=== PATIENT | female | born 2005 ===

== ENCOUNTER 2025-08-16 08:34 | Emergency (ER) | payer OTHER, SELFPAY ==
--- NOTE | ~2025-08-16 | CT_ITS ---
CTA CHEST CLINICAL HISTORY: elevated D-Dimer, low risk for PE . COMPARISON: Chest x-ray today TECHNIQUE: Helical CTA performed from thoracic inlet to upper abdomen IV contrast information not listed in PACS Coronal, sagittal reformats. Multiplanar MIPS CT images acquired with automatic exposure control for dose reduction DLP: 310 mGy-cm FINDINGS: Pulmonary arteries: No PE. Thoracic Aorta: No dissection or aneurysm. Heart/pericardium: Unremarkable. RV/LV ratio: Normal. Lungs/Pleura: Clear. Tracheobronchial tree: Patent. Nodes: No enlarged nodes. Bones: No acute bony abnormality. Soft tissues: Unremarkable. Visualized upper abdomen: Hepatomegaly, with steatosis. IMPRESSION: 1. No PE or other acute cardiopulmonary findings. Reviewed, dictated and finalized at location R.
--- NOTE | ~2025-08-16 | XR_ITS ---
EXAMINATION: XR chest 2V, 08/16/2025 9:08 CDT HISTORY: SOB; RT SIDED CP COMPARISON: No comparisons available. Technique: 2 views obtained. Findings: The lungs are clear, no effusion. No pneumothorax. Heart is normal size. Mediastinal and hilar contours are within normal limits. Bony thorax no acute abnormality. Impression: No acute cardiopulmonary abnormality. Reviewed, dictated and finalized at location P. Impression: No acute cardiopulmonary abnormality.
[2025-08-16 08:40] VITALS: BP 152/111; PULSE 85; RESP 20; TEMP 36.6; O2SAT 100
--- NOTE | 2025-08-16 08:40 | ECG_ITS ---
Test Date: 2025-08-16 08:43:17 Measurements Intervals [place] Rate: 84 P: 43 MN: 158 QRS: 68 QRSD: 90 T: 17 QT: 358 QTc: 424 Interpretive Statements SINUS RHYTHM NONSPECIFIC T-WAVE ABNORMALITY- ANTERIOR LEADS BASELINE ARTIFACT- I, III, AVR, AVL, AVF BORDERLINE ECG No previous ECG available for comparison Electronically Signed On 08-16-2025 09:28:21 CDT by Lokesh Vasques D.O.
[2025-08-16 08:45] VITALS: O2SAT 100
--- NOTE | 2025-08-16 08:50 | ED_ITS ---
HPI - SOB/Dyspnea General Chief Complaint: Shortness of Breath/Dyspnea Stated Complaint: SOB Time Seen by Provider: 08/16/25 08:41 History of Present Illness HPI Narrative: 20-year-old female history of anxiety and depression presents to the ER complaining of inspiratory chest pain and shortness of breath that began yesterday. Denies history of PE/DVT. States shortness of breath and chest pain is not aggravated with activity. Denies history of asthma. Related Data Allergies Allergy/AdvReac Type Severity Reaction Status Date / Time No Known Allergies Allergy Verified 08/16/25 08:44 Review of Systems 2 Review of Systems: All systems reviewed & are unremarkable except as noted in HPI and below Exam 2 Const: General: healthy appearing and alert Orientation/consciousness: p atient oriented x3 HENMT: Head: normal to inspection Eyes: Conjunctivae: conjunctivae normal Pupils: Equal, round and reactive pupils present EOM: EOMs intact bilaterally Resp: Effort & Inspection: normal respiratory effort Auscultation: clear to auscultation bilaterally Cardio: Rate: regular rate Rhythm: regular rhythm Skin: General skin exam: normal color Neuro: General: patient oriented x3, moves all extremities and CN's II-XI intact bilaterally Extrem: General: normal to inspection Psych: Mental Status: mental status grossly normal Affect: normal affect Attitude: cooperative Course Vital Signs Vital signs: Vital Signs Temperature 36.6 C 08/16/25 08:40 Pulse Rate 85 08/16/25 08:40 Respiratory Rate 20 08/16/25 08:40 Blood Pressure 152/111 H 08/16/25 08:40 Pulse Oximetry 100 08/16/25 08:40 Oxygen Delivery Room Air 08/16/25 08:40 Temperature 36.6 C 08/16/25 08:40 Pulse Rate 85 08/16/25 09:01 Respiratory Rate 14 08/16/25 09:01 Blood Pressure 144/98 H 08/16/25 09:01 Pulse Oximetry 100 08/16/25 09:01 Oxygen Delivery Room Air 08/16/25 08:45 MDM - SOB/Dyspnea MDM Narrative Medical decision making narrative: In summary: 20-year-old female presents the ER complaining of shortness of breath, chest tightness and anxiety. Differential diagnosis includes anxiety attack, pleurisy, costochondritis, angina, pneumonia, PE. Imaging and lab work reassuring. Patient was given Toradol and Valium. On re-examination, patient's symptoms had resolved. Cause a presentation is likely mix of pleurisy and anxiety. Patient was discharged home in stable condition. Lab Data 08/16/25 08:48 08/16/25 08:48 Labs: Lab Results 08/16/25 08/16/25 Range/Units 08:48 09:59 WBC 12.5 H (4.5-10.0) K/mm3 RBC 5.27 (4.2-5.4) M/mm3 Hgb 14.8 (12.0-15.0) g/dL Hct 42.9 (37.0-47.0) % MCV 81.4 (80-100) fl MCH 28.1 (26-34) pg MCHC 34.5 (32-36) g/dl RDW 11.6 (11.5-14.5) % Plt Count 367 (150-375) k/mm3 MPV 9.3 (7.4-10.4) fl Immature Gran % (Auto) 0.5 (0-0.5) % Neut % (Auto) 76.0 H (45.5-73.1) % Lymph % (Auto) 17.9 L (18.3-44.2) % [place] % (Auto) 4.2 (2.6-8.5) % Eos % (Auto) 1.1 (0-4.4) % Baso % (Auto) 0.3 (0.2-1.2) % Lymph # (Auto) 2.23 (0.9-3.2) K/mm3 [place] # (Auto) 0.5 (0.1-0.6) K/mm3 Eos # (Auto) 0.1 (0-0.3) K/mm3 Baso # (Auto) 0.0 (0.0-0.1) K/mm3 Abs Immat Gran (auto) 0.06 H (0.00-0.031) K/mm3 Absolute Neuts (auto) 9.5 H (1.3-6.7) K/mm3 Absolute Nucleated RBC 0.000 (0.0-0.012) K/mm3 Nucleated RBC % 0.0 (0.0-0.2) % D-Dimer 0.49 H (<0.48) ug/mL Sodium 137 (137-145) mmol/L Potassium 3.6 (3.4-5.0) mmol/L Chloride 103 (98-107) mmol/L Carbon Dioxide 20 L (22-30) mmol/L Anion Gap 14 H (4-12) mmol/L BUN 15 (7-17) mg/dL Creatinine 0.72 (0.7-1.0) mg/dL Estim Creat Clear Calc 107 ml/min Estimated GFR > 60 (59 - ) Glucose 101 (65-110) mg/dL Calcium 10.3 H (8.4-10.2) mg/dL Total Bilirubin 0.5 (0.2-1.3) mg/dL AST 30 (14-36) U/L ALT 28 (6-35) U/L Alkaline Phosphatase 66 (38-126) U/L Troponin I < 0.012 (0.000-0.034) ng/mL Total Protein 8.8 H (6.3-8.2) g/dL Albumin 5.0 (3.5-5.1) g/dL POC Urine HCG, Qual Negative (Negative) Discharge Plan Discharge Clinical Impression: Pleurisy, Anxiety Patient Disposition: Home Condition: Stable Instructions: Antibiotic Form, Pleurisy (ED), Anxiety (ED) Patient Language: [place] Island[place] Prescriptions: New hydroxyzine HCl 25 mg tablet 25 mg PO TID Qty: 30 0RF naproxen 500 mg tablet 500 mg PO BID Qty: 20 0RF Follow-up/Referrals: Ruth,Emily Dent MD [Primary Care Provider] Time of Disposition: 10:45
[2025-08-16 08:58] LABS: Hematocrit 42.9 % (37.0-47.0); Hemoglobin 14.8 g/dL (12.0-15.0); Immature Granulocyte Percent A 0.5 % (0-0.5); Lymphocytes Absolute Auto 2.23 K/mm3 (0.9-3.2); Mean Corpuscular HGB Conc 34.5 g/dl (32-36); Mean Corpuscular Hemoglobin 28.1 pg (26-34); Mean Corpuscular Volume 81.4 fl (80-100); Nucleated Red Blood Cells Absolute Auto 0.000 K/mm3 (0.0-0.012); Nucleated Red Blood Cells Perc 0.0 % (0.0-0.2); Platelet Count Result 367 k/mm3 (150-375); Red Blood Count 5.27 M/mm3 (4.2-5.4); White Blood Count 12.5 K/mm3 (4.5-10.0)
--- OUTSIDE RECORDS SUMMARY | 2025-08-16 08:59 | XMS_ITS | Clinical Summary ---
Author Organization [facility] Address [address] [place] [address] Care Team Providers Care Physical Medicine Teacher Name Role Phone Emily Miranda MD Primary Care Provider Source Comments [facility],non-owned Affiliates and Associated Physician Practices is amultiple site organization consisting of ambulatory clinics and hospital sitesin [place], [place], [place] and [place]. This disclosure is being madepursuant to the Care Everywhere program and may not contain all information available regarding this patient. Last updated 18.[facility] Allergies No known active allergies Medications * Be aware that medications may not be up to date on this document. Alwaysverify current medications with the patient. 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 Gender Identity Not on file Sexual Orientation Not on file Last Filed Vital Signs Vital Sign Reading Time Taken Comments Blood Pressure 106/68 06/27/2019 2:37 PM CDT Pulse 89 06/27/2019 2:37 PM CDT Temperature 37.4 C (99.4 F) 06/27/2019 2:37 PM CDT Respiratory Rate 21 06/27/2019 2:37 PM CDT Oxygen Saturation 98% 06/27/2019 2:37 PM CDT Inhaled Oxygen Concentration - - Weight 53.1 kg (117 lb) 06/27/2019 2:37 PM CDT Height 165.1 cm (5' 5) 06/27/2019 2:37 PM CDT Body Mass Index 19.47 06/27/2019 2:37 PM CDT Plan of Treatment Health Maintenance Due Date Last Done Comments HIV SCREENING 01/15/2020 HPV VACCINE (1 - 3-dose series) 01/15/2020 CHLAMYDIA/GONORRHEA SCREENING 2021 MENINGOCOCCAL (Group B) VACC INE SHARED DECISION-MAKING (1 of 2 - Standard) 2021 HEPATITIS C SCREENING 01/10/2023 DTAP/TDAP/TD VACCINES (1 - Tdap) 01/15/2024 HEPATITIS B VACCINE (1 of 3 - 19+ 3-dose series) 01/15/2024 DEPRESSION SCREENING 11/11/2024 COVID-19 VACCINE (1 - 2023-2 5 season) 2025 INFLUENZA VACCINE (#1) 2025 ZOSTER VACCINE (1 of 2) 2055 HIB VACCINE Aged Out No longer eligi ble based on patient's age to complete this topic MENINGOCOCCAL GROUPS A/C/Y/W VACCINE Aged Out No longer eligible b ased on patient's age to complete this topic PNEUMOCOCCAL VACCINE Aged Out No long er eligible based on patient's age to complete this topic Insurance ANTHEM Care Teams Physical Medicine Teacher Relationship Specialty Start Date End Date Emily Miranda MD [address] [place] [id number] PCP - General Pediatrics 06/27/19
--- OUTSIDE RECORDS SUMMARY | 2025-08-16 08:59 | XMS_ITS | Encounter Summary ---
Author Organization [facility] Healthcare Address [address] [place] [address] Care Team Providers Care Handkerchief Presser Name Role Phone Emily Miranda MD Primary Care Provider [phone] Encounter Details Date Type Department Care Team ([facility] st Contact Info) Description 08/14/2025 Results Follow-Up [facility] Medical [facility] Con[facility]ient Care at [address] [phone] Lillie Mehta NP [address] [place] [address] [address] [place], [place] [id number] Vaginitis panel Vaginal, Urine culture Urine, clean voided, N. gonorrhoeae/C. trachomatis Amplification Vaginal Social History Tobacco Use Types Packs/Day Years Used Date Smoking Tobacco: Never Assessed Comments Unknown Sex and Gender Information Value Date Recorded Sex Assigned at Not on file Legal Sex Female 9:54 AM CDT Gender Identity Not on file Sexual Orientation Not on file documented as of this encounter Plan of Treatment Not on file documented as of this encounter Visit Diagnoses Not on filedocumented in this encounter Care Teams Handkerchief Presser Relationship Specialty Start Date End Date Emily Miranda MD [address] [facility] [address] [place] [address] PCP - General Pediatrics 06/14/23 documented as of this encounter
--- OUTSIDE RECORDS SUMMARY | 2025-08-16 08:59 | XMS_ITS | Clinical Summary ---
Author Organization [facility] Address [address] [place] [address] Care Team Providers Care Cleaning Matron Name Role Phone Emily Miranda MD Primary Care Provider [phone] Allergies No known active allergies Medications Tri-Sprintec, 28, 0.18/0.215/0.25 mg-0.035mg (28) per tablet Take by mouth daily as needed 08/08/2025 Active buPROPion XL (WELLBUTRIN XL) 300 mg 24 hr tablet Take 1 tablet (300 mg total) by mouth daily Active busPIRone (BUSPAR) 15 mg tabletIndicatio ns:Generalized Anxiety Disorder Take 1 tablet (15 mg total) by mouth 2 (two) times a day Active sertraline (ZOLOFT) 50 mg tablet Take 1 tablet (50 mg total) by mouth daily Active hydrOXYzine (ATARAX) 10 mg tablet Take 1 tablet (10 mg total) by mouth daily as needed for itching Active Active Problems No known active problems Encounters Date Type Department Care Team Description 08/14/2025 Results Follow-Up [facility] Medical [facility] Convenient Care at [address] [phone] Lillie Mehta NP Vaginitis panel Vaginal, Urine culture Urine, clean voided, N. gonorrhoeae/C. trachomatis Amplification Vaginal 08/13/2025 7:00 PM CDT Office Visit [facility] at [address] [phone] Lillie Mehta NP Pelvic pain (Primary Dx); Acute midline low back pain without sciatica 08/13/2025 6:56 PM CDT - 08/13/2025 11:59 PM CDT Hospital Encounter [address] [address] Pelvic pain Discharge Disposition: Discharge to home or self care from Last 3 Months Social History Tobacco Use Types Packs/Day Years Used Date Smoking Tobacco: Never Assessed Comments Unknown Sex and Gender Information Value Date Recorded Sex Assigned at Not on file Legal Sex Female 9:54 AM CDT Gender Identity Not on file Sexual Orientation Not on file Last Filed Vital Signs Vital Sign Reading Time Taken Comments Blood Pressure 122/76 08/13/2025 7:02 PM CDT Pulse 84 08/13/2025 7:02 PM CDT Temperature 36.7 C (98 F) 08/13/2025 7:02 PM CDT Respiratory Rate 20 08/13/2025 7:02 PM CDT Oxygen Saturation 98% 08/13/2025 7:02 PM CDT Inhaled Oxygen Concentration - - Weight 76.2 kg (168 lb) 08/13/2025 7:02 PM CDT Height - - Body Mass Index - - Plan of Treatment Health Maintenance Due Date Last Done Comments Depression Screening 2005 Hepatitis C Screening 2005 Meningococcal B Vaccine (2 o f 2 - Trumenba SCDM 2-dose series) 08/21/2022 02/19/2022, 02/13/2021 Regular Well Visit/Exam 18-64 2023 Covid-19 Vaccine (5 - 2024-2 6 season) 2025 09/20/2022, 04/19/2022, 03/21/2021, Additional history exists Influenza Vaccine (#1) 2025 , 08/02/2021, 07/30/2020, Additional history exists DTaP/Tdap/Td Vaccine (7 - Td or Tdap) 06/13/2026 06/13/2016, 02/28/2010, 02/17/2007, Additional history exists Pneumococcal vaccine <65 Completed 006, 04/03/2006, 01/15/2006 Varicella Vaccines Completed 05/22/2006, 04/03/2006 Hepatitis B Screening Completed 08/14/2006 , 05/22/2006, 04/03/2006, Additional history exists HPV Vaccines Completed 01/10/2017, 05/2016, 06/13/2016 Meningococcal Vaccine Completed 02/13/2021, 016 Procedures Procedure Name Priority Date/Time Associated Diagnosis Comments POCT URINALYSIS DIPSTICK Routine 08/13/2025 7:05 PM CDT Pelvic pain N. GONORRHOEAE/C. TRACHOMATIS AMPLIFICATION Routine 08/13/2025 6:56 PM CDT Pelvic pain URINE CULTURE Routine 08/13/2025 6:56 PM CDT Pelvic pain VAGINITIS PANEL Routine 08/13/2025 6:56 PM CDT Pelvic pain from Last 3 Months Results * POCT urinalysis dipstick (08/13/2025 7:05 PM CDT) Color, Urine, POC Yellow Clarity, ur, POC Clear Clear Glucose, ur, POC Negative Negative Bilirubin, ur, POC Negative Negative Ketones, ur, POC Negative Negative Specific [place], POC 1.025 1.003 - 1.030 Blood, ur, POC Negative Negative pH, ur, POC 6.5 5.0 - 8.0 Protein, ur, POC Negative Negative Urobilinogen, urine, POC 0.2 0.2 - 1.0 mg/dL Nitrite, ur, POC Negative Negative Leukocytes, ur, POC Negative Negative Lot Number [id number] Urine 08/13/2025 7:05 PM CDT us Lillie Mehta NP POINT OF CARE TEST ORDERAB LES Final Result * N. gonorrhoeae/C. trachomatis Amplification Vaginal (08/13/2025 6:56 PM CDT) C. trachomatis Not Detected [facility] Comment:Testing performed by : [facility], [address] [place] [address] N. gonorrhoeae Not Detected [facility] Comment: Interpretive Data This assay detects Chlamydia trachomatis and Neisseria gonorrhoeae by nucleic acid amplification testing (NAAT). This assay has been cleared by the [place] Food and Drug administration. The performance characteristics of this test have been verified by the [facility] Molecular Infectious Disease laboratory. The performance characteristics of this test have not been evaluated in individuals less than 14 years of age. Current Interpretive Data was last revised on 2023. Testing performed by: [facility], [address] [place]., [address] Vaginal (None) 08/13/2025 6: 56 PM CDT 08/14/2025 12:09 AM CDT Lillie Mehta NP LAB MICROBIOLOGY - GENERAL ORDERABLES Final Result [facility] [address] Department [place] [address] [facility] * Vaginitis panel Vaginal (08/13/2025 6:56 PM CDT) Pathologist [facility] Bacterial Vaginosis Not Detected Not Detected Comment:A negative result do es not preclude a possible infection. Results should be considered in conjunction with clinical presentation to determine the disease status. Shannan group Not Detected Not Detected [facility] Shannan glabrata/ krusei Not Detected Not Detected [facility] Trichomonas DNA Not Detected Not Detected [facility] Vaginal 08/13/2025 6:56 PM CDT 08/13/2025 9:19 PM CDT Narrative [facility] - 08/13/2025 10:29 PM CDT The [employer]ep[employer] Things[employer] Xpert Xpress MVP test detects DNA targets from anaerobic bacteria associated with bacterial vaginosis, Shannan species associated with vulvovaginal candidiasis, and Trichomonas vaginalis by nucleic acid amplification testing (NAAT). Results should be interpreted in conjunction with other clinical data. This test cannot be used to assess therapeutic success or failure because target nucleic acids may persist following antimicrobial therapy. This test has been cleared by the [place] Food and Drug Administration to aid in the diagnosis of vaginal infections in symptomatic women ages 14 and older. The performance characteristics of this test have been verified by the [facility]. Lillie Mehta NP LAB MICROBIOLOGY - GENERAL ORDERABLES Final Result Performing Organization Address [facility] Co de Phone Number ANDREAS GROSS [phone] Department [place] [address] [place] * Urine culture Urine, clean voided (08/13/2025 6:56 PM CDT) Report Final Report: Less than 100,000 colonies/mL (clinically insignificant growth based on current clinical standards) Comment:Testing performed by : [facility], [address] [place]., [address] Organism (CLINICALLY INSIGNIFICANT GROWTH [facility] Urine, clean voided 08/13/2025 6:56 PM CDT 08/14/2025 12:18 AM CDT Narrative [facility]RE[facility] - 08/15/2025 9:44 AM CDT Testing performed by [facility] Microbiology Laboratory ([phone]) Lillie Mehta NP LAB MICROBIOLOGY - GENERAL ORDERABLES Final Result Performing Organization Address [facility] Co de Phone Number ANDREAS GROSS [phone] Department [place] [address] from Last 3 Months Insurance [employer] [facility] HMO HMO Care Teams Cleaning Matron Relationship Specialty Start Date End Date Emily Miranda MD [address] [address] PCP - General Pediatrics 06/14/23
[2025-08-16 09:01] VITALS: BP 144/98; PULSE 85; RESP 14; O2SAT 100
[2025-08-16 09:16] LABS: Alanine Aminotransferase 28 U/L (6-35); Albumin Level 5.0 g/dL (3.5-5.1); Alkaline Phosphatase 66 U/L (38-126); Anion Gap 14 mmol/L (4-12); Aspartate Amino Transferase 30 U/L (14-36); Bilirubin,Total 0.5 mg/dL (0.2-1.3); Blood Urea Nitrogen 15 mg/dL (7-17); Calcium 10.3 mg/dL (8.4-10.2); Carbon Dioxide 20 mmol/L (22-30); Chloride 103 mmol/L (98-107); Estimated CRCL calculation 107 ml/min; Estimated Glomerular Filt Rate > 60; Glucose 101 mg/dL (65-110); Potassium 3.6 mmol/L (3.4-5.0); Sodium 137 mmol/L (137-145); Total Protein 8.8 g/dL (6.3-8.2)
[2025-08-16] MEDS: KETOROLAC 30 MG/ML VIAL (*BKC) IV PUSH (09:19)
[2025-08-16] MEDS: diazePAM INJ (*CRX) 10 MG/2 ML SYRINGE 5 MG IV PUSH (09:20)
[2025-08-16 09:27] LABS: Troponin I < 0.012 ng/mL (0.000-0.034)
[2025-08-16 10:01] LABS: BEDSIDEPREGUCG Negative (Negative)
--- OUTSIDE RECORDS SUMMARY | 2025-08-16 10:01 | XMS_ITS | Clinical Summary ---
Author Organization [facility] Address [address] [place] [address] Care Team Providers Care Administrative Services Specialist Name Role Phone Emily Miranda MD Primary Care Provider [phone] Allergies No known active allergies Medications Tri-Sprintec, [...] Department Care Team Description 08/14/2025 Results Follow-Up [facility] Medical [facility] Convenient Care at [address] [phone] Lillie Mehta NP Vaginitis panel Vaginal, Urine culture Urine, clean voided, N. gonorrhoeae/C. trachomatis Amplification Vaginal 08/13/2025 7:00 PM CDT Office Visit [facility] Medical [facility] Convenient Care at [address] [phone] Lillie Mehta NP Pelvic pain (Primary Dx); Acute midline low back pain without sciatica 08/13/2025 6:56 PM CDT - 08/13/2025 11:59 PM CDT Hospital Encounter [address] [address] Pelvic pain Discharge Disposition: Discharge to home [...] Negative Ketones, ur, POC Negative Negative Specific [place], POC 1.025 1.003 - 1.030 Blood, ur, POC Negative Negative pH, ur, POC 6.5 5.0 - 8.0 Protein, ur, POC Negative Negative Urobilinogen, urine, POC 0.2 0.2 - 1.0 mg/dL Nitrite, ur, POC Negative Negative Leukocytes, ur, POC Negative Negative Lot Number [id number] Urine 08/13/2025 7:05 PM CDT us Lillie Mehta NP POINT OF CARE TEST ORDERAB LES Final Result * N. gonorrhoeae/C. trachomatis Amplification Vaginal (08/13/2025 6:56 PM CDT) C. trachomatis Not Detected [facility] Comment:Testing performed by : [facility], [address] [place]., [address] N. gonorrhoeae Not Detected [facility] Comment: Interpretive Data This assay detects Chlamydia trachomatis and Neisseria gonorrhoeae by nucleic acid amplification testing (NAAT). This assay has been cleared by the [place] Food and Drug administration. The performance characteristics of this test have been verified by the [facility] Molecular Infectious Disease laboratory. The performance characteristics of this test have not been evaluated in individuals less than 14 years of age. Current Interpretive Data was last revised on 2023. Testing performed by: [facility], [address] [place]., [address] Vaginal (None) 08/13/2025 6: 56 PM CDT 08/14/2025 12:09 AM CDT Lillie Mehta NP LAB MICROBIOLOGY - GENERAL ORDERABLES Final Result [facility] [address] Department [place] [address] [facility] * Vaginitis panel Vaginal (08/13/2025 6:56 PM CDT) Pathologist [facility] Bacterial Vaginosis Not Detected Not Detected Comment:A negative result do es not preclude a possible infection. Results should be considered in conjunction with clinical presentation to determine the disease status. Shannan group Not Detected Not Detected [facility] Shannan glabrata/ krusei Not Detected Not Detected [facility] Trichomonas DNA Not Detected Not Detected [facility] Vaginal 08/13/2025 6:56 PM CDT 08/13/2025 9:19 PM CDT Narrative [facility] - 08/13/2025 10:29 PM CDT The Cepmy[employer] Xpert Xpress MVP test detects DNA targets [...] this test have been verified by the [facility] Laboratory. Lillie Mehta NP LAB MICROBIOLOGY - GENERAL ORDERABLES Final Result Performing Organization Address [facility] Co de Phone Number ANDREAS GROSS [phone] Department [place] [address] [place] * Urine culture Urine, clean voided (08/13/2025 6:56 PM CDT) Report Final Report: Less than 100,000 colonies/mL (clinically insignificant growth based on current clinical standards) Comment:Testing performed by : [facility], [address] [place]., [address] Organism (CLINICALLY INSIGNIFICANT GROWTH [facility] Urine, clean voided 08/13/2025 6:56 PM CDT 08/14/2025 12:18 AM CDT Narrative ANDREAS - 08/15/2025 9:44 AM CDT Testing performed by [facility] Microbiology Laboratory ([phone]) Lillie Mehta NP LAB MICROBIOLOGY - GENERAL ORDERABLES Final Result Performing Organization Address [facility] Co de Phone Number ANDREAS GROSS [phone] Department [place] [address] from Last 3 Months Insurance [employer]ET[employer] [facility] HMO HMO Care Teams Administrative Services Specialist Relationship Specialty Start Date End Date Emily Miranda MD [address] [address] PCP - General Pediatrics 06/14/23
--- OUTSIDE RECORDS SUMMARY | 2025-08-16 10:01 | XMS_ITS | Data Portability ---
Author Organization [place] [facility], Main Office Address [address] [place] [address] Assessment Encounter Date Assessment Date Assessment LastModified by Organization Details LastModified Time 06/18/2023 06/18/2023 This note is dictated and transcribed by [employer]. Sql [employer] Developer variances may occur. Despite proofreading, typographical errors may occur. Not available 06/18/2023 09:19:40 03/10/2024 03/10/2024 This note is dictated and transcribed by [employer]. [employer] variances may occur. Despite proofreading, typographical errors may occur. Occasional wrong-word or 'upumq-g-orzd' substitutions may have occurred due to the inherent limitations of voice recording. Read the chart carefully and recognize, using context, where substitutions have occurred. [email or web address] Not available 03/10/2024 16:45:24 03/19/2024 03/19/2024 This note is dictated and transcribed by [employer]. Sql [employer] Developer variances may occur. Despite proofreading, typographical errors may occur. Occasional wrong-word or 'fkony-r-onqe' substitutions may have occurred due to the inherent limitations of voice recording. Read the chart carefully and recognize, using context, where substitutions have occurred. Not available 03/19/2024 16:40:48 Plan of Treatment Reminders Order Date Submit Date Provider Last Modified By Organization Details Last Modified Time Details Appointments None record ed. Lab None record ed. Referral None record ed. Procedures None record ed. Surgeries None record ed. Imaging None record ed. Medication Orders None record ed. Patient TargetsNo targets recorded. Patient Instructions Encounter Date Encounter Id Patient Instructions Last Modified By Organization Details Last Modified Time 03/10/2024 [id number] paronychia: care instructions Not available 03/10/2024 16:45:31 03/19/2024 [id number] paronychia: care instructions Not available 03/19/2024 16:41:18 Reason for Referral None Reported. Results Created Date Observation Date Name Description Value Unit Range Abnormal Flag Note LastModifiedBy Organization Detail LastModifiedTime 09/26/20 22 09/26/2022 XR, ankle , 3 or more view No observ ation record ed. [id number] [facility] [place] [address] [facility], [facility] [address], [place], [address], 01/09/2023 20:01:49 Result Notes None recorded. Problems Name Problem SNOMED Code Status Onset Date Resolution Date Notes Provider Name and Address Organization Details Recorded Time Pain in bilateral feet 6437553520781 9102 Active 2018 Not Available [facility] 3 20:01:07 Congenital pes planus 92641111 Active 2018 Not Available [facility] 3 20:01:07 Ankle pain 683189006 Active 2018 Not Available [facility] 3 20:01:07 Peroneal tendinitis 87718822 Active 2018 Not Available [facility] 3 20:01:07 Peroneal tendinitis 80057973 Active 2018 Not Available [facility] 3 20:01:07 Pain of right ankle joint 4592727941590 9106 Active 2021 Not Available [facility] 3 20:01:07 Congenital pes planus 45830071 Active 2021 Not Available [facility] 3 20:01:07 Tendinitis of right posterior tibial tendon 9187140457809 02 Active 2021 Not Available [facility] 3 20:01:07 Ingrowing toenail 964807644 Active 2022 Cosmo Ely DPM [address] [facility], [facility] [address], [place], [address] , [facility] [employer] [facility] 3 09:05:03 Notes:allergies (seasonal) Problem Notes None recorded. Procedures Surgical History Date Name Laterality Status Provider Name and Address Organization Details Recorded Time 4 Partial Nail Avulsion Chemical Matrixectomy- Left completed Cosmo Ely DPM [address], [place], [address], [employer] 03/10/2024 16:44:37 4 Toenail avulsion completed Cosmo Ely DPM [address], [place], [address], [employer] 01/28/2024 14:21:05 3 Partial Nail Avulsion Chemical Matrixectomy- Left completed Cosmo Ely DPM [address], [place], [address], [employer] 06/18/2023 09:22:06 Imaging Results None recorded. Procedure Notes None recorded. Medical Equipment None Reported. Medications Name Sig Start Date Stop Date Status Note LastModified by Organization Details LastModified Time ibuprofen 800 mg tablet TAKE 1 TABLET EVERY 6-8 HOURS NEEDED 03/19 completed Not Available Not Available Not Available ampicillin 500 mg capsule TAKE 2 CAPSULES BY MOUTH IMMEDIATE LY THEN 1 CAPSULE FOUR TIMES DAILY 03/19 completed Not Available Not Available Not Available penicillin V potassium 500 mg tablet TAKE 1 TABLET BY MOUTH FOUR TIMES DAILY UNTIL GONE 03/19 completed Not Available Not Available Not Available tramadol 50 mg tablet TAKE 1 TABLET BY MOUTH EVERY 4 TO 6 HOURS NEEDED 03/19 completed Not Available Not Available Not Available triamcinolo ne acetonide 0.1 % topical cream APPLY 1 GRAM TOPICALLY TO THE AFFECTED AREA TWICE DAILY 03/19 completed Not Available Not Available Not Available amoxicillin 500 mg tablet 05/26 completed Not Available Not Available Not Available cephalexin 500 mg capsule TAKE 1 CAPSULE BY MOUTH TWICE DAILY FOR 7 DAYS active Not Available Not Available No t Available ibuprofen 400 mg tablet TAKE 1 TABLET BY MOUTH EVERY 6 HOURS NEEDED FOR DENTAL PAIN 03/19 completed Not Available Not Available Not Available mupirocin 2 % topical ointment APPLY TO THE AFFECTED AREA TWICE DAILY active Not Available Not Available No t Available amoxicillin 875 mg-potassiu m clavulanate 125 mg tablet TAKE 1 TABLET BY MOUTH TWICE DAILY 03/19 completed Not Available Not Available Not Available Tri-Sprinte c (28) 0.18 mg(7)/0.215 mg(7)/0.25 mg(7)-0.035 mg tablet TAKE 1 TABLET BY MOUTH EVERY DAY DIRECTED active Not Available Not Available No t Available Vitals Date Recorded Heart rate Respiratory rate Oxygen saturation Oxygen saturation in Arterial blood by Pulse oximetry Systolic And Diastolic Provider Name and Address Organization Details Last Updated DateTime 4 70 /min 14 /min 99 % 99 % 112/83 mm[Hg] Francie Kinney [employer] 4 17:37:56 Date Recorded Heart rate Systolic And Diastolic Provider Name and Address Organization Details Last Updated DateTime 03/10/2024 72 /min 136/89 mm[Hg] Josephine Serrato [employer] [facility] 03/10/2024 15:39:56 Date Recorded Body height Body mass index (BMI) Body mass index (BMI) [Percentile] Per age and sex Body weight Heart rate Respiratory rate Body temperature Oxygen saturation Oxygen saturation in Arterial blood by Pulse oximetry Systolic And Diastolic Provider Name and Address Organization Details Last Updated DateTime 4 162.56 cm 22.3 kg/m2 58 % 04753.0 1 g 70 /min 14 /min 98 [degF] 99 % 99 % 130/80 mm[Hg] Armida Calhoun [employer] 4 16:22:01 Date Recorded Heart rate Respiratory rate Oxygen saturation Oxygen saturation in Arterial blood by Pulse oximetry Systolic And Diastolic Provider Name and Address Organization Details Last Updated DateTime 3 82 /min 14 /min 98 % 98 % 120/74 mm[Hg] Francie Kinney [employer] [place] 3 09:07:11 Date Recorded Oxygen saturation Oxygen saturation in Arterial blood by Pulse oximetry Heart rate Respiratory rate Systolic And Diastolic Provider Name and Address Organization Details Last Updated DateTime 2 99 % 99 % 71 /min 14 /min 99/81 mm[Hg] Not Available [employer] 3 20:01:02 Social History None recorded. Functional Status None recorded. Mental Status None recorded. Family History Nothing Reported. Medical History No medical history recorded. Gynecological HistoryNo gynecological history recorded. Obstetrics History GPAL:G 0 P 0 0 0 0 Past Encounters Encounter ID Performer Location Encounter Start Date Encounter Closed Date Diagnosis/Indication Diagnosis SNOMED-CT Code Diagnosis ICD10 Code Diagnosis IMO Codes Diagnosis Note [id number] Cosmo Ely DPM [facility] [place] [address] [place] [id number] 09/06/2022 00:00:00 09/06/2022 10:02:52 [id number] Cosmo Ely DPM [facility] [place] [address] [place] [id number] 09/26/2022 00:00:00 09/26/2022 17:06:18 [id number] Cosmo Ely DPM [facility] [place] [address] [place] [id number] 06/18/2023 08:55:33 06/18/2023 09:49:30 Ingrowing toenail 952433758 L60.0 Left great toe ingrown, lateral borderpart ial nail avulsion performed todaydaily wound care with Neosporinf ollow-up for partial matrixecto my lateral left great toenail [id number] Cosmo Ely DPM [facility] [place] [address] [facility] [address] [place] [address] 01/27/2024 17:33:01 01/29/2024 10:11:56 Ingrowing toenail 360360130 L60.0 Left great toe ingrown, lateral borderpart ial nail avulsion performed todaydaily wound care with Neosporinf ollow-up for partial matrixecto my lateral left great toenail [id number] Cosmo Ely DPM [facility] [place] [address] [place] [id number] 03/10/2024 15:11:21 03/10/2024 16:58:19 Ingrowing toenail 448375645 L60.0 Left great toe ingrown, lateral borderpart ial matrixecto my performed todaywound care reviewed with the patient, monitor for signs of infection present seek medical attention immediatel y follow-up for Wound check in 10 days [id number] Cosmo Ely DPM [facility] [place] [address] [place] [address] 03/19/2024 16:09:54 03/19/2024 17:06:39 Ingrowing toenail 270319961 L60.0 Left great toe ingrown, lateral borderpart ial matrixecto my healingcon tinue wound carefinish oral antibiotic sfollow-up in 1 week if continues to be problemati c Health Concerns Section Related Observation LastModified by Organization Detai ls LastModified Time None Recorded Concern Status LastModified by Organization Details LastModified Time None Recorded Advance Directives Directive None Recorded Payers Insurance Date Sequence Insurance Name Policy Number Policy Colin Covered Member ID Colin Member ID Guarantor Name 03/16/2024 1 [employer] [id number] Tammy Singh [id number] Anayeli Singh Notes Date Note Type Note Provider Name and Address Organization Details Recorded Time 06/18/2023 text/html . Patient is 18-year-old female who presents the office with complaints of pain to her great toenails. Patient denies any redness or drainage. Patient states she has a sharp pain with walking and pressure. Patient denies any previous issues with the toenails. Patient denies any other pedal complaints. Cosmo Ely DPM [address], [facility] [address], [place], [address], [employer] 06/18/2023 09:22:50 01/27/2024 text/html . Patient is a 19-year-old female who returns the office for an ingrown toenail of the great toe. Patient states she has had some redness and pain. Patient states she is unable to bear a lot of pressure to the toe due to the discomfort. Patient denies any fever, chills, nausea or vomiting. Cosmo Ely DPM [address], [place], [address], [employer] 01/28/2024 14:21:52 03/10/2024 text/html . Patient is a 19-year-old female who presents the office for left great toe incurvation. Patient has had repetitive ingrown toenails to the left lateral great toe which she is here for a partial matrixectomy. Patient denies any open wounds or infection. Patient denies any other complaints. Cosmo Ely DPM [address], [facility] [address], [place], [address], [employer] 03/10/2024 16:46:06 03/19/2024 text/html . Patient is a 19-year-old female who returns the office status post partial ingrown toenail procedure. Patient states overall she has been doing well she has some mild inflammation to the area that is resolving. Patient states she has no drainage or redness. Patient states that she did develop some redness and purulence over the weekend to which she went to urgent Care and was placed on cephalexin and a topical medication which she has been using. Patient denies any other complaints. Cosmo Ely DPM [address], [facility] [address], [place], [address], [employer] 03/19/2024 16:41:30 OBGyn Episode No OBEpisode recorded.
--- OUTSIDE RECORDS SUMMARY | 2025-08-16 10:01 | XMS_ITS | Encounter Summary ---
Author Organization [facility] Healthcare Address [address] [place] [address] Care Team Providers Care Network Development Coordinator Name Role Phone Emily Miranda MD Primary Care Provider [phone] Encounter Details Date Type Department Care Team ([facility] st Contact Info) Description 08/14/2025 Results Follow-Up [facility] at [address] [phone] Lillie Mehta NP [address] [place] [address] [address] [place], [place] [id number] Vaginitis panel Vaginal, Urine culture Urine, clean [...] on filedocumented in this encounter Care Teams Network Development Coordinator Relationship Specialty Start Date End Date Emily Miranda MD [address] [facility] [address] [place] [address] PCP - General Pediatrics 06/14/23 documented as of this encounter
--- OUTSIDE RECORDS SUMMARY | 2025-08-16 10:01 | XMS_ITS | Clinical Summary ---
Author Organization [facility] Address [address] [place] [address] Care Team Providers Care Embedded Systems Developer Name Role Phone Emily Miranda MD Primary Care Provider [phone] Source Comments [facility],non-owned Affiliates and Associated Physician Practices is amultiple site organization consisting of ambulatory clinics and hospital sitesin [place], [place], [place] and [place]. This disclosure is being madepursuant to the Care Everywhere program and may not contain all information available regarding this patient. 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
[2025-08-16 10:54] VITALS: BP 128/85; PULSE 81; RESP 16; O2SAT 99
== END 2025-08-16 10:54 | disposition home or self-care (01) ==
PROVIDERS: Emergency Medicine; Emergency Provider Nurse Practitioner Family; PCP Pediatrics Adolescent Medicine
DX: R09.1 Pleurisy (principal); F41.9 Anxiety disorder, unspecified; R94.31 Abnormal electrocardiogram [ECG] [EKG]
CPT/HCPCS: 36415; 71046; 71275; 80053; 81025; 84484; 85025; 85380; 93005; 96374; 96375; 99284; J1885; J3360; Q9967